=== PATIENT | male | born 1990 | race Caucasian/White ===

== ENCOUNTER 2017-09-05 05:13 | Emergency (ER) | payer MEDICAID ==
[~2017-09-05] VITALS: Ht 167.6 cm; Wt 66.0 kg
[2017-09-05] MEDS ORDERED: SODIUM CHLORIDE 0.9% 1,000 ML IV ONE (06:09)
[2017-09-05] MEDS ORDERED: MORPHINE SULFATE 4 MG/ML CPJ (NOT FOR IM USE) IV ONE ×2 (06:15→06:45)
[2017-09-05] MEDS ORDERED: ONDANSETRON HCL 4MG/2ML VIAL IV ONE (06:15)
[2017-09-05] MEDS ORDERED: MORPHINE SULFATE 10 MG/ML CPJ IV ONE (07:00)
[2017-09-05 09:00] VITALS: BP 155/80
== END 2017-09-05 11:10 | disposition home or self-care (01) ==
LOC: ER 05:13
DX: S52.122A Displaced fracture of head of left radius, initial encounter for closed fracture (principal); V00.131A Fall from skateboard, initial encounter; Y93.51 Activity, roller skating (inline) and skateboarding; Y92.89 Other specified places as the place of occurrence of the external cause
CPT/HCPCS: 73060; 73070; 73090; 96361; 96374; 96375; 96376; 99284; J2270; J2405; J7030; Z7610; L3670

== ENCOUNTER 2018-01-27 23:45 | Emergency (ER) | payer MEDICAID ==
[~2018-01-27] VITALS: Ht 180.3 cm; Wt 77.0 kg
[2018-01-28] MEDS ORDERED: LIDOCAINE 5% PATCH TOP STA (01:57)
[2018-01-28] MEDS ORDERED: HYDROCODONE/ACETAMINOPHEN 10/325MG TABLET PO ONE (02:30)
[2018-01-28 06:00] VITALS: BP 111/77
== END 2018-01-28 06:25 | disposition home or self-care (01) ==
LOC: ER 23:45
DX: S43.402A Unspecified sprain of left shoulder joint, initial encounter (principal); S00.412A Abrasion of left ear, initial encounter; Y92.410 Unspecified street and highway as the place of occurrence of the external cause; V49.88XA Car occupant (driver) (passenger) injured in other specified transport accidents, initial encounter; Y93.89 Activity, other specified; Y92.89 Other specified places as the place of occurrence of the external cause; Y99.8 Other external cause status
CPT/HCPCS: 71045; 73030; 99284

== ENCOUNTER 2019-06-30 17:42 | Emergency (ER) | payer BC, MEDICAID ==
[~2019-06-30] VITALS: Ht 172.7 cm; Wt 70.0 kg
[2019-06-30] MEDS ORDERED: IBUPROFEN 600MG TABLET PO ONE (18:45)
[2019-06-30] MEDS ORDERED: PENICILLIN G BENZATHINE 1,200,000 UNITS/2ML SYR IM ONE (18:45)
[2019-06-30 19:15] VITALS: BP 140/76
== END 2019-06-30 19:20 | disposition home or self-care (01) ==
LOC: ER 17:42
DX: K04.7 Periapical abscess without sinus (principal)
CPT/HCPCS: 96372; 99283; J0561

== ENCOUNTER 2024-03-25 11:36 | Emergency (ER) | payer MEDICAID ==
[~2024-03-25] VITALS: Ht 170.2 cm; Wt 63.0 kg
[2024-03-25 12:17] VITALS: BP 135/96; PULSE 115; RESP 20; TEMP 98.5; O2SAT 99
[2024-03-25 13:01] LABS: BASOPHILS % 0.3 % (0.0-2.0); EOSINOPHILS % 3.1 % (0.0-5.0); HEMATOCRIT. 49.6 % (42.0-52.0); HEMOGLOBIN. 16.4 g/dL (14.0-18.0); LYMPHOCYTES % 16.8 % (20.0-50.0); MEAN CORPUSCULAR HEMOGLOBIN 29.2 pg (28.0-32.0); MEAN CORPUSCULAR HGB CONC 33.2 g/dL (31.0-37.0); MEAN CORPUSCULAR VOLUME 88.1 fL (80.0-94.0); MEAN PLATELET VOLUME 8.5 fl (7.4-10.4); MONOCYTES % 9.4 % (2.0-8.0); NEUTROPHILS % 70.4 % (40.0-76.0); PLATELET 368 x1000/uL (130-400); RED BLOOD CELL COUNT 5.63 mill/uL (4.7-6.1); RED CELL DISTRIBUTION WIDTH 12.8 % (11.6-14.6); WHITE BLOOD COUNT 7.5 x1000/uL (4.5-11.0)
[2024-03-25 13:08] LABS: CHLORIDE 102 mEq/L (98-107); POTASSIUM 3.6 mEq/L (3.5-5.1); SODIUM 137 mEq/L (136-145)
[2024-03-25 13:09] LABS: CALCIUM 9.9 mg/dL (8.7-10.4); CARBON DIOXIDE 29 mEq/L (21-32)
[2024-03-25 13:14] LABS: CREATININE 0.9 mg/dL (0.6-1.3); GLUCOSE 79 mg/dL (70-105); UREA NITROGEN BLOOD 17 mg/dL (9-23)
[2024-03-25 13:16] LABS: ALANINE AMINOTRANSFERASE 20 IU/L (10-49); ALBUMIN 4.9 g/dL (3.2-4.8); ASPARTATE AMINOTRANSFERASE 16 IU/L (<34); BILIRUBIN DIRECT 0.2 mg/dL (<=3.0); BILIRUBIN TOTAL 0.5 mg/dL (0.1-1.0); PROTEIN TOTAL 7.7 g/dL (6.0-8.3)
[2024-03-25] MEDS ORDERED: ONDANSETRON 4MG ODT PO NR (16:13)
[2024-03-25] MEDS ORDERED: SODIUM CHLORIDE 0.9% 1,000 ML IV NR (16:13)
== END 2024-03-25 18:29 | disposition home or self-care (01) ==
LOC: ER 11:36
DX: K52.9 Noninfective gastroenteritis and colitis, unspecified (principal); F12.10 Cannabis abuse, uncomplicated
CPT/HCPCS: 36415; 74176; 80048; 80076; 85025; 99284